=== PATIENT | male | born 1990 | race Caucasian/White ===

== ENCOUNTER 2024-09-23 16:21 | Emergency (ER) | payer BC, SELFPAY ==
[2024-09-23 16:25] VITALS: BP 143/65; PULSE 82; RESP 18; TEMP 36.4; O2SAT 100; BMI 24.3
--- NOTE | 2024-09-23 16:54 | ED_ITS ---
<Statement entered by Monroe Perla, DO - 09/23/24 18:26> Dr. Perla: I was immediately available in the department for consultation. I did not actually see the patient. HPI - Back Pain/Injury General Chief Complaint: Back Pain/Injury Stated Complaint: Sciatic pain x7days Time Seen by Provider: 09/23/24 16:41 History of Present Illness HPI Narrative: This is a 33-year-old male with a history of ulcerative colitis and chronic intermittent sciatica who presents with concern for sciatic pain. Patient states for about the past week he has been having pain in his low back 1st started on the right side right at the sacroiliac junction radiating down into his right buttock and leg then 3 days ago it seems to have moved to his left side he feels it at the same location but radiating down the side and back of his left leg and affecting his left great toe creating a numbness sensation sometimes. He describes the pain as a constant aching type pain that feels like similar sciatic flare-up episodes. He does state that he thinks it is possible he has having a UC flare-up as he has been having more frequent bowel movements recently. He thinks that this could possibly have contributed to his sciatic symptoms due to his position sitting on the toilet. He states that he does have a PCP but does not currently see a specialist for his ulcerative colitis and does not take any medication for it. He denies fevers chills, abdominal pain nausea vomiting or any other symptoms. Related Data Previous Rx's ?Medication ?Instructions ?Recorded lidocaine 5 % topical ointment 1 applic topical TID MN N pain #30 09/23/24 grams prednisone 20 mg tablet 40 mg (2 x 20 mg) PO DAILY 5 days 09/23/24 #10 tabs tizanidine 2 mg tablet 2 - 4 mg (1 - 2 x 2 mg) PO Q 8-12H 09/23/24 muscle spasm 7 days #30 tabs Allergies Allergy/AdvReac Type Severity Reaction Status Date / Time No Known Allergies Allergy Uncoded 09/23/24 16:29 Review of Systems Review of Systems Narrative: See HPI Patient History Social History Smoking Status: Current every day smoker Smoking Status: Current every day smoker Exam Narrative Exam Narrative: GENERAL: [33] year old patient appears stated age. Well-developed patient, in mild distress. HEAD: Atraumatic. Normocephalic. EYES: Pupils equal round and reactive. Extraocular motions intact. No scleral icterus. No injection or drainage. ENT: Nose without bleeding, purulent drainage. Airway patent. NECK: Trachea midline. CARDIOVASCULAR: Regular rate and rhythm without murmurs, gallops, or rubs. RESPIRATORY: Clear to auscultation. Breath sounds equal bilaterally. No wheezes, rales, or rhonchi. GASTROINTESTINAL: Abdomen soft, non-tender except very mild left lower quadrant tenderness, nondistended. EXTREMITIES: Flexion/strength with resisted movement of the hip is intact as well as extension at the knee on the right. Patient has increased left back pain with flexion at the knees bilaterally more pronounced on the left. As well as some increased pain with extension of the knee on the left. No edema or joint tenderness. Pedal pulses are intact. BACK: There is tenderness at the sacroiliac junction on the left and tenderness and tightness of the muscle over the left buttock. Otherwise back is Nontender without deformity or crepitance. There is no midline spinous process tenderness deformity or step-off. No flank tenderness. NEURO: AOx3. SKIN: No rash or erythema of visible areas Initial Vital Signs Initial Vital Signs: Vital Signs Temperature 97.5 F L 09/23/24 16:25 Pulse Rate 82 09/23/24 16:25 Respiratory Rate 18 09/23/24 16:25 Blood Pressure 143/65 H 09/23/24 16:25 Pulse Oximetry 100 09/23/24 16:25 Oxygen Delivery Method Room Air 09/23/24 16:25 Course Vital Signs Vital signs: Vital Signs - 8 hr 09/23/24 16:25 09/23/24 18:19 Temperature 97.5 F L 98.3 F Pulse Rate 82 82 Respiratory Rate 18 20 Blood Pressure 143/65 H 125/59 L Pulse Oximetry 100 98 Oxygen Delivery Method Room Air Room Air MDM - Back Pain/Injury Differential Diagnosis Differential diagnosis: Likely lumbar radiculopathy and sciatica Medical Records Attestation: I reviewed the patient's medical records. MDM Narrative Medical decision making narrative: 33-year-old male with a history of ulcerative colitis and chronic intermittent sciatica presents with concern for left-sided sciatica with back pain present for 1 week worsening and left-sided involvement for the last 3 days. Very mild left lower quadrant abdominal tenderness which he states is fairly consistent for him associated with his UC. His symptoms and exam are consistent with sciatic pain and this feels like a sciatic flare-up to him. We discussed options and are limited to avoid NSAIDs given his UC. We will treat with 5 day course of prednisone 40 mg daily as well as topical lidocaine as well as muscle relaxer tizanidine as needed. He is interested in possibly having a shot if indicated (steroid) and orthopedic information is provided. He is also encouraged to talk to his PCP about seeing a specialist again as he does not currently see anyone for his ulcerative colitis and is not taking any medication for this. His vitals are unremarkable and generally well-appearing today. We discussed obtaining x-ray however there is no new injury and this pain is consistent with previous chronic intermittent sciatic pain. He has been taking Tylenol up to 4000 mg daily for the last 5-7 days and he was advised to try to give a break from this or cut back to 3000 mg dly if he is going to be using it persistently. Return precautions provided, follow-up plan discussed, all questions answered. Discharge Plan Departure Patient Disposition: Home Clinical Impression: Sciatica of left side Activity Restrictions/Additional Instructions: *You have been diagnosed with [sciatica] *What to do: *Please continue to take your regular medications as directed. [ 3] New medication prescriptions sent to your pharmacy: [Prednisone, lidocaine, tizanidine] [ ] New medication written as a paper prescription [ ] No new medications given *Please follow up with your primary care provider in 2-3 days, call for an appointment. Let them know you were seen in the Emergency Department and that we ask that you be seen in follow up. We will electronically transmit a record of today's note if your PCP is in our system. You came in today with concern for 7 days of sciatic pain symptoms. You have been taking up to 4000 mg of Tylenol daily for the last 5-7 days which is ?okay?. Although I would recommend you try to keep your dose closer to 3000 or less if possible if you are going to be taking it for a long period of time. Or consider giving yourself a break for a few days if other treatments are helping and then you can take Tylenol again if needed. I have prescribed a muscle relaxer for you as some of her pain and discomfort is probably related to muscle tension tightness and spasming. , please only take this as needed you may want to try it in the evening before bed at 1st and you should not drink alcohol with it or operate any heavy equipment/machinery or drive a vehicle. I also prescribed lidocaine topical that will hopefully help with your pain and a 5 day course of prednisone to reduce inflammation and also likely help with your pain. Contact information for orthopedic provider in office is below. As it sounds like you do have chronic and recurrent problems with back pain/sciatic pain and it could be helpful to have evaluation from a specialist. I would encourage you to talk to your primary care provider about treatments for your ulcerative colitis if you feel that you are having flares since you are not currently on any medication for this. You can also talk to your PCP about getting into see a specialist again and re-establishing care. I hope that your back pain feels better soon please seek re-evaluation if you are not improving within 3 weeks or if you are worsening with new symptoms. *If you do not have a primary care provider please contact the [facility] Resource line at [phone]. They will ask some questions about your medical history and help get you set up with a doctor in the community. *Return to Emergency Department if you should have any new, worsening or concerning symptoms, such as [fever greater than 101 F, shaking chills, worsening pain, persistent vomiting or other bothersome symptoms] Prescriptions: New tizanidine 2 mg tablet 2 - 4 mg PO Q8-12H 7 Days Qty: 30 0RF prednisone 20 mg tablet 40 mg PO DAILY 5 Days Qty: 10 0RF lidocaine 5 % ointment 1 applic topical TID PRN (Reason: pain) Qty: 30 1RF Referrals: Paul Medrano MD [Physician, Orthopedic Surgery] Referral Note: Eval/Possible injection, acute on chronic back pain Stand Alone Forms: Patient Portal/API
[2024-09-23 18:19] VITALS: BP 125/59; PULSE 82; RESP 20; TEMP 36.8; O2SAT 98
== END 2024-09-23 18:21 | disposition home or self-care (01) ==
PROVIDERS: Emergency Provider Student in an Organized Health Care Education/Training Program
DX: M54.32 Sciatica, left side (principal)
CPT/HCPCS: 99281